=== PATIENT | female | born 1965 | race Caucasian/White ===

== ENCOUNTER 2020-04-06 15:34 | Outpatient (CLI) | payer MEDICAID | END 2020-04-06 23:59 | disposition home or self-care (01) | LOC: CARD 15:34 | PROVIDERS: ATTEND Physician Assistant Medical | DX: R06.02 Shortness of breath (principal); I48.0 Paroxysmal atrial fibrillation | CPT/HCPCS: 94060; 94726; 94729 ==

== ENCOUNTER → 2020-05-19 | Outpatient (CLI) | payer MEDICAID ==
[~2020-05-19] MED LIST: REGADENOSON 0.4 MG/5 ML SYRINGE ONE
== END | disposition home or self-care (01) ==
LOC: CFH 07:39
PROVIDERS: ATTEND Physician Assistant Medical
DX: I25.89 Other forms of chronic ischemic heart disease (principal); I48.0 Paroxysmal atrial fibrillation; I10 Essential (primary) hypertension; E78.5 Hyperlipidemia, unspecified
CPT/HCPCS: 78452; 93017; 93306; A9502; J2785